=== PATIENT | female | born 1950 | race Asian ===

== ENCOUNTER 2022-07-24 14:21 | Outpatient (CLI) | payer MEDICARE, OTHER | END 2022-07-24 14:22 | disposition home or self-care (01) | LOC: CSHMAMMO 14:21 | PROVIDERS: ATTEND Family Medicine | DX: Z12.31 Encounter for screening mammogram for malignant neoplasm of breast (principal) | CPT/HCPCS: 77063; 77067 ==

== ENCOUNTER 2023-08-15 13:26 | Outpatient (CLI) | payer MEDICARE, OTHER | END 2023-08-15 13:27 | disposition home or self-care (01) | LOC: CSHMAMMO 13:26 | PROVIDERS: ATTEND Family Medicine | DX: Z12.31 Encounter for screening mammogram for malignant neoplasm of breast (principal) | CPT/HCPCS: 77063; 77067 ==